=== PATIENT | male | born 1960 | race African-American/Black ===

== ENCOUNTER → 2020-10-30 | Outpatient (CLI) | payer OTHER ==
[~2020-10-30] MED LIST: CARVEDILOL25 MG PO; FAMOTIDINE20 MG PO; FUROSEMIDE40 MG PO; GABAPENTIN100 MG PO; GLUCOTROL5 MG PO; HYDRALAZINE HCL25 MG PO; HYDROCHLOROTHIA25 MG PO; LO-DOSE ASPIRIN81 MG PO; NORVASC 5 MG TAB5 MG PO; VITAMIN D 40400 UNIT PO
== END ==
LOC: HEART 5 10-15 10:00
DX: I42.0 Dilated cardiomyopathy (principal); I27.20 Pulmonary hypertension, unspecified; I51.7 Cardiomegaly; I07.1 Rheumatic tricuspid insufficiency
CPT/HCPCS: 93306

== ENCOUNTER → 2021-02-05 | Outpatient (CLI) | payer OTHER | LOC: EXRD 12:48 | DX: I73.9 Peripheral vascular disease, unspecified (principal); I10 Essential (primary) hypertension | CPT/HCPCS: 93925 ==

== ENCOUNTER 2021-06-14 11:23 | Emergency (ER) | payer SELFPAY | END 2021-06-14 12:39 | disposition home or self-care (01) | LOC: ER1 11:23 | DX: S61.012A Laceration without foreign body of left thumb without damage to nail, initial encounter (principal); I10 Essential (primary) hypertension; W26.8XXA Contact with other sharp object(s), not elsewhere classified, initial encounter | CPT/HCPCS: 12001; 99282 ==

== ENCOUNTER 2022-03-09 18:22 | Observation (INO) | payer OTHER ==
[~2022-03-09] VITALS: Ht 177.8 cm; Wt 110.7 kg
[2022-03-09 19:19] LABS: HEMOGLOBIN 12.7 gm/dl (14.0-17.5); RED BLOOD COUNT 4.35 M/UL (4.20-5.50); WHITE BLOOD COUNT 5.9 K/UL (4.5-11.0)
[2022-03-09] MEDS ORDERED: HYDRALAZINE HCL50 MG PO (23:45)
[2022-03-09] MEDS ORDERED: HYDROCHLOROTH12.5 MG PO (23:46)
[2022-03-09] MEDS ORDERED: ISOSORBIDE MONO30 MG PO (23:47)
[2022-03-10] MEDS ORDERED: CARVEDILOL25 MG PO (11:00)
[2022-03-10] MEDS ORDERED: FUROSEMIDE40 MG PO (11:02)
[2022-03-10] MEDS ORDERED: GLIPIZIDE5 MG PO (11:03)
[2022-03-10] MEDS ORDERED: ALLOPURINOL300 MG PO (11:04)
[2022-03-11] MEDS ORDERED: GLIPIZIDE5 MG PO (09:05)
[2022-03-11] MEDS ORDERED: FUROSEMIDE40 MG PO (09:05)
[2022-03-11] MEDS ORDERED: HYDRALAZINE HCL50 MG PO (09:05)
[2022-03-11] MEDS ORDERED: LISINOPRIL5 MG PO (09:05)
[2022-03-11] MEDS ORDERED: CARVEDILOL25 MG PO (09:05)
[2022-03-11] MEDS ORDERED: ISOSORBIDE MONO30 MG PO (09:05)
== END 2022-03-11 11:01 | disposition home or self-care (01) ==
LOC: ER1 18:22 → PROG CARE 22:30 → CDU 22:30 → PROG CARE 23:56
PROVIDERS: Internal Medicine; Physician Assistant Medical; ADMIT Internal Medicine
DX: I13.0 Hypertensive heart and chronic kidney disease with heart failure and stage 1 through stage 4 chronic kidney disease, or unspecified chronic kidney disease (principal); I50.23 Acute on chronic systolic (congestive) heart failure; E11.22 Type 2 diabetes mellitus with diabetic chronic kidney disease; N18.30 Chronic kidney disease, stage 3 unspecified; R77.8 Other specified abnormalities of plasma proteins; I42.8 Other cardiomyopathies; I16.0 Hypertensive urgency; T46.4X6A Underdosing of angiotensin-converting-enzyme inhibitors, initial encounter; Z91.120 Patient's intentional underdosing of medication regimen due to financial hardship
CPT/HCPCS: 36415; 71045; 80048; 80053; 82550; 82553; 82962; 83880; 84484; 85025; 93005; 96372; 96374; 96376; 99285; G0378; J1650; J1940

== ENCOUNTER 2022-03-16 14:24 | Emergency (ER) | payer OTHER ==
[~2022-03-16 14:24] MED LIST changes: +ALLOPURINOL300 MG PO; +GLIPIZIDE5 MG PO; +HYDRALAZINE HCL50 MG PO; +HYDROCHLOROTH12.5 MG PO; +ISOSORBIDE MONO30 MG PO; +LISINOPRIL5 MG PO
== END 2022-03-16 16:19 | disposition left against medical advice (07) ==
LOC: ER1 14:24
DX: Z53.21 Procedure and treatment not carried out due to patient leaving prior to being seen by health care provider (principal)